=== PATIENT | male | born 1980 | race Caucasian/White ===

== ENCOUNTER 2020-11-29 00:40 | Emergency (ER) | payer MEDICAID, MEDICARE ==
[~2020-11-29] VITALS: Ht 175.3 cm; Wt 98.5 kg
[2020-11-29 00:42] VITALS: BP 154/95
[2020-11-29] MEDS ORDERED: SILVER NITRATE STICK TP ONE ×2 (01:28→01:30)
== END 2020-11-29 02:18 | disposition home or self-care (01) ==
LOC: ED 01:28
DX: S21.119A Laceration without foreign body of unspecified front wall of thorax without penetration into thoracic cavity, initial encounter (principal); I10 Essential (primary) hypertension; W45.8XXA Other foreign body or object entering through skin, initial encounter; Y93.89 Activity, other specified; Y92.009 Unspecified place in unspecified non-institutional (private) residence as the place of occurrence of the external cause; Y99.8 Other external cause status
CPT/HCPCS: 12031; 99284

== ENCOUNTER 2021-04-11 21:43 | Emergency (ER) | payer MEDICARE ==
[~2021-04-11] VITALS: Ht 175.3 cm; Wt 94.0 kg
[2021-04-11 22:48] LABS: BASOPHILS % (AUTO) 1 % (0-1); EOSINOPHILS % (AUTO) 1 % (1-7); LYMPHOCYTES % (AUTO) 41 % (22-44); MEAN CORPUSCULAR HEMOGLOBIN 28.3 pg (27.5-34.5); MEAN CORPUSCULAR HGB CONC 34.2 g/dL (33.2-36.2); MEAN PLATELET VOLUME 8.4 fL (7.4-10.4); MONOCYTES % (AUTO) 10 % (2-9); NEUTROPHILS % (AUTO) 48 % (42-75); PLATELET COUNT 193 x10^3/uL (130-400); RED BLOOD COUNT 5.48 x10^6/uL (4.38-5.82); RED CELL DISTRIBUTION WIDTH 13.8 % (9.4-14.8)
[2021-04-11 22:58] LABS: ALANINE AMINOTRANSFERASE 34 U/L (12-78); ANION GAP 6 mmol/L (5-15); CALCIUM 9.1 mg/dL (8.5-10.1); CHLORIDE 104 mmol/L (98-107); CREATININE 1.22 mg/dL (0.7-1.3)
[2021-04-11 23:00] LABS: ALKALINE PHOSPHATASE 53 U/L (45-117); BILIRUBIN,TOTAL 0.6 mg/dL (0.2-1.0); TOTAL PROTEIN 7.9 g/dL (6.4-8.2)
--- NOTE | 2021-04-12 00:45 | NUR ---
pt presents to the ed after having a bm and seeing blood on the toliet paper, pt did not check his stool. pt in gown, resting on gurney, and placed on continuous monitoring.
[2021-04-12 01:00] VITALS: BP 131/74
--- NOTE | 2021-04-12 02:47 | NUR ---
Patient given discharge instructions and they have confirmed that they understand the instructions. Patient ambulatory with steady gait.
== END 2021-04-12 02:52 | disposition home or self-care (01) ==
LOC: ED 22:13
DX: K60.0 Acute anal fissure (principal); I10 Essential (primary) hypertension
CPT/HCPCS: 36415; 80053; 85025; 99283